=== PATIENT | female | born 1955 | race Asian ===

== ENCOUNTER → 2018-04-11 | Outpatient (CLI) | payer MEDICARE | END | disposition home or self-care (01) | LOC: CFH 08:21 | PROVIDERS: ATTEND Nurse Practitioner Family | DX: Z13.820 Encounter for screening for osteoporosis (principal); M85.80 Other specified disorders of bone density and structure, unspecified site; N95.9 Unspecified menopausal and perimenopausal disorder | CPT/HCPCS: 77080 ==

== ENCOUNTER 2020-05-13 18:43 | Emergency (ER) | payer MEDICARE ==
[~2020-05-13] VITALS: Ht 149.9 cm; Wt 49.9 kg
--- NOTE | 2020-05-13 19:13 | NUR ---
TASK RN: PT AMBULATORY TO ROOM 13 W/ C/O DIZZINESS STARTED TODAY AT 1700. PT STATES SHE HAS RX FOR ANTIVERT BUT FORGOT SHE HAD RX PRIOR TO ARRIVAL TO ED. STATES SHE GOT RX FROM PCP 2 DAYS AGO. PT RESTING ON [place]. CIER[place]. MONITORS APPLIED. FRIEND AT BEDSIDE.
[2020-05-13] MEDS ORDERED: MECLIZINE CHEWABLE 25 MG TAB ONE (19:17)
--- NOTE | 2020-05-13 19:26 | NUR ---
TASK RN: KEIRA COLLECTED, LABELED AND SENT TO LAB.
[2020-05-13] MEDS ORDERED: MECLIZINE CHEWABLE 25 MG TAB PO ONE (19:30)
--- NOTE | 2020-05-13 19:31 | NUR ---
TASK RN: REPORT GIVEN TO VANCE PRIMARY RN.
[2020-05-13 19:35] LABS: BASOPHILS % (AUTO) 1 % (0-1); EOSINOPHILS % (AUTO) 3 % (1-7); LYMPHOCYTES % (AUTO) 29 % (22-44); MEAN CORPUSCULAR HEMOGLOBIN 31.6 pg (27.0-34.8); MEAN CORPUSCULAR HGB CONC 33.6 g/dL (32.4-35.8); MEAN PLATELET VOLUME 6.2 fL (7.4-10.4); MONOCYTES % (AUTO) 8 % (2-9); NEUTROPHILS % (AUTO) 59 % (42-75); PLATELET COUNT 305 x10^3/uL (130-400)
[2020-05-13 19:36] LABS: MD NO; MICROSCOPIC AUTO
[2020-05-13 19:40] LABS: ALANINE AMINOTRANSFERASE 27 U/L (12-78); ALBUMIN 3.7 g/dL (3.4-5.0); ANION GAP 4 mmol/L (5-15); CALCIUM 8.7 mg/dL (8.5-10.1); CHLORIDE 107 mmol/L (98-107); CREATININE 0.91 mg/dL (0.55-1.02)
[2020-05-13 19:44] LABS: ALKALINE PHOSPHATASE 111 U/L (45-117); BILIRUBIN,TOTAL 0.2 mg/dL (0.2-1.0); TOTAL PROTEIN 7.8 g/dL (6.4-8.2); TROPONIN I < 0.015 ng/mL (0.000-0.045)
[2020-05-13 20:36] VITALS: BP 129/82
--- NOTE | 2020-05-13 21:14 | NUR ---
road test per md. pt states vertigo has decreased but not resolved. pt was able to ambulate but is a little unsteady on her feet. pt states her ability to walk has improved greatly from previous. md made aware.
== END 2020-05-13 21:42 | disposition home or self-care (01) ==
LOC: ED 20:51
DX: R42 Dizziness and giddiness (principal); R51.9 Headache, unspecified; I10 Essential (primary) hypertension; R94.31 Abnormal electrocardiogram [ECG] [EKG]
CPT/HCPCS: 36415; 70450; 71045; 80053; 81001; 84484; 85025; 87077; 87086; 87186; 93005; 99285